=== PATIENT | female | born 1985 | race Caucasian/White ===

== ENCOUNTER 2016-10-18 02:00 | Emergency (ER) | payer OTHER ==
[2016-10-18] MEDS ORDERED: 0.9 % SODIUM CHLORIDE 1,000 ML IV ONE ×2 (02:08→02:20)
[2016-10-18] MEDS ORDERED: ONDANSETRON HCL/PF 4 MG/ 2ML VIAL ONE (02:08)
[2016-10-18] MEDS ORDERED: KETOROLAC TROMETHAMINE 30 MG/1ML VIAL ONE (02:08)
[2016-10-18] MEDS ORDERED: ONDANSETRON HCL/PF 4 MG/ 2ML VIAL IVP ONE (02:20)
[2016-10-18] MEDS ORDERED: KETOROLAC TROMETHAMINE 30 MG/1ML VIAL IVP ONE (02:20)
[2016-10-18 02:25] LABS: EOSINOPHILS % 2.1 % (0.0-6.8); MEAN CORPUSCULAR HEMOGLOBIN 29.1 pg (28.0-34.0); MEAN CORPUSCULAR VOLUME 89.2 fl (80.0-100.0); MONOCYTES % 3.5 % (0.0-11.0); NEUTROPHILS # 6.7 # k/uL (1.4-7.7)
[2016-10-18 02:26] LABS: BASOPHILS % 0.6 (0.0-1.5)
[2016-10-18 02:42] LABS: eGFR (African) > 60; eGFR (Non-African) > 60
--- NOTE | 2016-10-18 03:18 | Diagnostic Imaging Report ---
ELMA JJ [facility] [address] [facility] [address] [place], [place]. [address] Report Submission Date: October 18, 2016 3:17:15 AM CDT Patient Study Name: PB ROSSI Date: October 18, 2016 2:52:43 AM CDT Modality Type: CT\SR Gender: F Description: CT ABD & PELVIS W/O CO : 87 Institution: [facility] Physician: ELMA JJ Computed tomography of the abdomen and pelvis without contrast History: Right flank pain, nausea, vomiting Findings: Transverse abdomen and pelvis sections are obtained without contrast revealing moderate right hydroureteronephrosis without nephrolithiasis. The gallbladder is normal in caliber and wall thickness. The lung bases, liver, pancreas, adrenals, spleen, left kidney, great vessels, mesenteric structures, and bowel loops are unremarkable. The appendix is normal. A tiny umbilical hernia contains omentum. Pelvic sections reveal a 3 mm right ureterovesical junction stone. Pelvic bowel loops, ovaries, uterus, and urinary bladder are otherwise normal. Small bilateral femoral/inguinal hernias contain fat. Impression: 1. 3 mm right ureterovesical junction stone with mild to moderate obstructive uropathy. 2. Small bilateral femoral/inguinal hernias contain fat. 3. Small umbilical hernia. Electronically signed on October 18, 2016 3:17:15 AM CDT by: Demarcus VICTOR
[2016-10-18] MEDS ORDERED: TAMSULOSIN HCL 0.4 MG CAP.ER.24H PO ONE (03:25)
[2016-10-18] MEDS ORDERED: HYDROcodone /APAP 5/325 1 EACH TABLET PO ONE (03:25)
[2016-10-18 03:54] VITALS: BP 108/68
[2016-10-18 05:38] LABS: APPEARANCE,URINE CLOUDY (CLEAR); COLOR,URINE YELLOW (YELLOW); OCCULT BLOOD,URINE 3+ (NEGATIVE); PH URINE 6.5 (5.0 - 8.0); URINE HCG NEGATIVE (NEGATIVE); UROBILINOGEN URINE 0.2 Eu (0.2-1.0)
--- NOTE | 2016-10-18 06:39 | ED Physician Documentation ---
Female Urogenital Problems - HISTORIAN Historian: patient - HPI Stated Complaint: Right Flank Pain Chief Complaint: Female Urogenital Problems Additional Information: rt flank pain blood in urine drinks xs soda-pain rel by toradol suspect stone Onset: hours (2200hrs some minor sharp pain yesterday), days ago Severity: moderate Location of Pain: pelvic pain - Associated Symptoms Urinary Symptoms: blood in urine, frequent urination, discomfort w/ urination - ROS CONST: no problems GI/: nausea CVS/RESP: none. denies: chest pain, shortness of breath EYES/ENT: none. denies: problems with vision NEURO/PSYCH: none. denies: headache MS/SKIN/LYMPH: none. denies: joint pain, leg swelling - PAST HX Past History: none Surgeries/Procedures: none Allergies/Adverse Reactions: Allergies Allergy/AdvReac Type Severity Reaction Status Date / Time No Known Allergies Allergy Verified 10/18/16 03:27 Home Medications: Ambulatory Orders Medication Instructions Recorded NK [NK] 10/18/16 - SOCIAL HX Smoking History: less than 1 pack/day Alcohol Use: none Drug Use: none - FAMILY HX Family History: none - VITAL SIGNS Vital Signs: Vital Signs Temp Pulse Resp BP Pulse Ox 97 F L 85 18 151/58 99 10/18/16 02:00 10/18/16 02:00 10/18/16 02:00 10/18/16 02:00 10/18/16 02:00 - REVIEWED ASSESSMENTS Nursing Assessment Reviewed: Yes Vitals Reviewed: Yes ED Results Lab/Radiology - Lab Results Lab Results: Lab Results 10/18/16 02:20 WBC 9.54 K/ul K/ul (4.00-12.00) RBC 4.83 M/ul M/ul (3.90-5.20) Hgb 14.1 g/dL g/dL (12.0-16.0) Hct 43.1 % % (34.5-46.5) MCV 89.2 fl fl (80.0-100.0) MCH 29.1 pg pg (28.0-34.0) MCHC 32.6 g/dL g/dL (30.0-36.0) RDW 12.7 % % (11.3-14.3) Plt Count 223 K/mm3 K/mm3 (130-400) Neut % (Auto) 69.9 % % (39.0-79.0) Lymph % (Auto) 22.9 % % (16.0-50.0) Drew % (Auto) 3.5 % % (0.0-11.0) Eos % (Auto) 2.1 % % (0.0-6.8) Baso % (Auto) 0.6 (0.0-1.5) Neut # 6.7 # k/uL # k/uL (1.4-7.7) Lymph # 2.2 # k/uL # k/uL (0.6-4.0) Drew # 0.3 # k/uL # k/uL (0.0-0.9) Eos # 0.2 # k/uL # k/uL (0.0-0.6) Baso # 0.1 # k/uL # k/uL (0.0-0.5) Reactive Lymphs % 1.1 % % (0.0-5.0) Reactive Lymphs # 0.1 # k/uL # k/uL (0.0-0.8) - Orders Orders: ED Orders Category Date Time Status RENAL STONE PROTOCOL [CT ABD & PELVIS W/O CON] Stat Exams 10/18/16 Ordered CBC/PLATELET/DIFF Routine Lab 10/18/16 Ordered CMP Routine Lab 10/18/16 Ordered URINALYSIS Routine Lab 10/18/16 Ordered URINE HCG Stat Lab 10/18/16 Uncollected 0.9 % Sodium Chloride [Normal Saline] 1,000 ml Med 10/18/16 02:08 Discontinued IV .STK-MED Ketorolac Tromethamine [Toradol] Med 10/18/16 02:08 Discontinued 30 mg .ROUTE .STK-MED ONE Ketorolac Tromethamine [Toradol] Med 10/18/16 02:20 Once 30 mg IVP NOW ONE NORMAL SALINE @ 1000 MLS/HR ( 1000ml BOLUS) Med 10/18/16 02:20 Ordered 0.9 % Sodium Chloride [Normal Saline] 1,000 ml IV Q1H Ondansetron HCl/Pf [Zofran 4 mg/2 ml] Med 10/18/16 02:08 Discontinued 4 mg .ROUTE .STK-MED ONE Ondansetron HCl/Pf [Zofran 4 mg/2 ml] Med 10/18/16 02:20 Once 4 mg IVP NOW ONE Female Urogenital Problems - EXAM General Appearance: moderate distress EENT: eye inspection normal, no signs of dehydration Neck: nml inspection Respiratory: no resp. distress, breath sounds nml. No: respiratory distress CVS: reg rate & rhythm, heart sounds normal Abdomen: soft, non-tender, other (min tenderness rt flank) Back: non-tender, CVA tenderness. No: vertebral point-tendernes, muscle spasm Skin: color nml, no rash, warm,dry. No: cyanosis, diaphoresis Extremities: non-tender, normal range of motion Neuro: oriented X3, motor nml, sensation nml, mood/affect nml Discharge Clincal Impression: Renal lithiasis Referrals: Primary Doctor,No [Primary Care Provider] - 2 Days Home Medications: Ambulatory Orders NK [NK] 10/18/16 Condition: Fair Decision to Admit: NO Decision Time: 03:30
== END 2016-10-18 03:35 ==
LOC: ED 02:00
DX: N20.0 Calculus of kidney (principal)
CPT/HCPCS: 74176; 80053; 81002; 81025; 85025; A9270; J1885; J2405; J7030; 96361; 96374; 96375; 99283; S1016